=== PATIENT | male | born 1980 | race Two or more races ===

== ENCOUNTER 2017-04-24 17:04 | Emergency (ER) | payer OTHER ==
[~2017-04-24] VITALS: Ht 180.3 cm; Wt 74.8 kg
--- NOTE | 2017-04-24 18:47 | NUR ---
Patient discharged to home in stable conditon. Written and verbal after care instructions given. Patient verbalizes understanding of instructions.
== END 2017-04-24 18:49 | disposition home or self-care (01) ==
LOC: ER 17:06
DX: L25.9 Unspecified contact dermatitis, unspecified cause (principal)
CPT/HCPCS: A4663